=== PATIENT | male | born 1980 | race Caucasian/White ===

== ENCOUNTER 2016-11-29 06:45 | Emergency (ER) | payer BC ==
[2016-11-29 06:51] VITALS: TEMP 98.1
[2016-11-29] MEDS ORDERED: ONDANSETRON ODT 4 MG TAB PO STA (07:10)
--- NOTE | 2016-11-29 07:42 | ED ---
Nausea/Vomiting/Diarrhea HPI - General Chief complaint: Nausea/Vomiting/Diarrhea Stated complaint: anxiety,vomiting Time Seen by Provider: 11/29/16 07:08 Source: patient Mode of arrival: ambulatory Limitations: no limitations - History of Present Illness Initial comments: This patient is a 36-year-old man who presents to be evaluated for nausea, vomiting, and diarrhea that started around 4 AM today. The patient did have a number of episodes of vomiting and diarrhea as well as some diffuse abdominal cramping. The cramping was intermittent and is now resolved. The patient also has some anxiety associated with these symptoms and has had similar a couple of prior occasions. He was concerned because he felt like he going to pass out. There was no associated fever or chill, chest pain, palpitations, diaphoresis or dyspnea. No bloody emesis or diarrhea noted MD complaint: nausea, vomiting, diarrhea Onset/Timin -: hour(s) Description of Vomiting: food contents Description of Diarrhea: water Associated Abdominal Pain: Yes Location: diffuse Severity: mild Quality: cramping Consistency: now resolved Improves with: none Worsens with: none Associated Symptoms: other (Anxiety) - Related Data Home Medications Medication Instructions Recorded Confirmed rOPINIRole HCL [Requip] 0.25 mg PO HS 11/29/16 11/29/16 Previous Rx's Medication Instructions Recorded Ondansetron Odt [Zofran ODT] 4 mg PO Q8HR PRN #10 tab 11/29/16 Allergies Allergy/AdvReac Type Severity Reaction Status Date / Time No Known Allergies Allergy Verified 01/06/16 22:32 Review of Systems ROS Statement: Those systems with pertinent positive or pertinent negative responses have been documented in the HPI. ROS Other: All systems not noted in ROS Statement are negative. Constitutional: Denies: fever, chills Respiratory: Denies: cough, dyspnea Cardiovascular: Denies: chest pain, palpitations, syncope Gastrointestinal: Reports: as per HPI, abdominal pain, nausea, vomiting, diarrhea. Denies: hematemesis, melena, hematochezia Genitourinary: Denies: dysuria Musculoskeletal: Denies: back pain Neurological: Denies: headache Past Medical History Past Medical History: No Reported History History of Any Multi-Drug Resistant Organisms: None Reported Past Surgical History: No Surgical Hx Reported Past Psychological History: No Psychological Hx Reported Smoking Status: Never smoker Past Alcohol Use History: None Reported Past Drug Use History: None Reported General Exam Limitations: no limitations General appearance: alert, in no apparent distress Head exam: Present: atraumatic, normocephalic Eye exam: Present: normal appearance. Absent: scleral icterus, conjunctival injection ENT exam: Present: normal oropharynx Neck exam: Present: normal inspection Respiratory exam: Present: normal lung sounds bilaterally. Absent: respiratory distress, wheezes, rales, rhonchi, stridor Cardiovascular Exam: Present: regular rate, normal rhythm, normal heart sounds. Absent: systolic murmur, diastolic murmur, rubs, gallop GI/Abdominal exam: Present: soft, normal bowel sounds. Absent: distended, tenderness, guarding, rebound, mass, pulsatile mass, hernia Extremities exam: Present: normal inspection, normal capillary refill. Absent: pedal edema, calf tenderness Back exam: Present: normal inspection. Absent: CVA tenderness (R), CVA tenderness (L) Skin exam: Present: warm, dry, intact, normal color. Absent: rash Course Vital Signs 11/29/16 06:47 Temperature 98.1 F Pulse Rate 73 Respiratory 20 Rate Blood Pressure 105/64 O2 Sat by Pulse 99 Oximetry Disposition Clinical Impression: Gastroenteritis Disposition: HOME SELF-CARE Condition: Fair Instructions: Acute Nausea and Vomiting (ED) Prescriptions: Ondansetron Odt [Zofran ODT] 4 mg PO Q8HR PRN #10 tab PRN Reason: Nausea Referrals: Lana Qiu III, MD [Primary Care Provider] - 1-2 days
[2016-11-29] MEDS ORDERED: LORazepam 1 MG TAB PO STA (07:55)
[2016-11-29] MEDS ORDERED: SODIUM CHLORIDE 0.9% 1,000 ML IV ONE (08:43)
[2016-11-29] MEDS ORDERED: PROMETHAZINE INJ 25 MG in SODIUM CHLORIDE 0.9% 50 ML IVPB STA (08:43)
[2016-11-29 10:11] VITALS: BP 95/54; PULSE 62; RESP 18
== END 2016-11-29 10:10 | disposition home or self-care (01) ==
LOC: EC 06:45
DX: K52.9 Noninfective gastroenteritis and colitis, unspecified (principal)
CPT/HCPCS: 99283; 96374; 96361; J2550

== ENCOUNTER → 2017-01-21 | Outpatient (CLI) | payer BC ==
--- NOTE | 2017-01-21 23:14 | PN ---
DATE OF SERVICE: 01/21/2017 This patient is a 36-year-old gentleman who has been followed in the sleep center for treatment of obstructive sleep apnea-hypopnea syndrome. Patient continues to use his CPAP equipment without significant problems. No snoring with the machine. No excessive daytime sleepiness. Muddy Sleepiness Scale today is 4. Patient lost ( ) pounds since previous visit. I checked his CPAP unit; machine is working and the compliance is acceptable. MEDICATIONS: 1. Ropinirole. 2. Multivitamins. 3. Hydrocodone. PHYSICAL EXAMINATION: Patient in no distress. VITAL SIGNS: BP 116/68, HR 80, RR 16. Height 6 feet 10 inches. Weight 273. BMI 37.0. Temperature 97.5. Oxygen saturation at room air 96%. HEENT: PERRLA, EOMI. Evaluation of oropharynx showed tongue protrudes midline; low position of soft palate. NECK: Supple. No JVD. Thyroid is not palpable. LUNGS: Clear to percussion and to auscultation. Good air exchange. No wheezing or rhonchi. HEART: S1, S2 regular. No murmurs, gallops or rubs. ABDOMEN: Slightly obese. EXTREMITIES: No clubbing or cyanosis. DIRECTOR VOLUNTEER SERVICES: Awake, alert, and oriented x3. Cranial nerves 2 to 7 intact. There is no fasciculation or atrophy noted. No focal deficits observed. IMPRESSION: 1. Obstructive sleep apnea-hypopnea syndrome. Patient demonstrated good compliance with treatment, benefitting from treatment. 2. Obesity. Patient lost weight since previous visit. 3. History of some nasal problems. 4. Status post recent vasectomy. PLAN: 1. Continue treatment with CPAP every night for the whole night. 2. We will fit patient with a little bit different style of full-face mask AirFit F10, large size. Patient feels comfortable with that. 3. No driving if feeling any sleepiness. 4. Sleep hygiene with regular time in bed for at least 8 hours. Thank you very much for allowing me to participate in the management of your patient. Sincerely, Espinoza Rose MD, PhD, FAASM. Diplomat of [employer], Sleep Medicine Board by [employer], [employer]
== END | disposition home or self-care (01) ==
LOC: SLEEP 16:52
PROVIDERS: ATTEND Internal Medicine
DX: G47.33 Obstructive sleep apnea (adult) (pediatric) (principal); E66.9 Obesity, unspecified; Z68.37 Body mass index [BMI] 37.0-37.9, adult; Z98.52 Vasectomy status; Z79.899 Other long term (current) drug therapy

== ENCOUNTER 2017-12-23 12:39 | Observation (INO) | payer BC ==
[2017-12-20 14:36] VITALS: BMI 36.3
[~2017-12-23 12:39] MED LIST: DEXAMETHASONE SOD PHOSPHATE 10 MG/ML 1 ML VIAL IV ONE; FAMOTIDINE 20 MG/2 ML VIAL IV ONE; LIDOCAINE 1% 20 ML VIAL (10MG/ML) FOR IV START INTRADERMA PRN; ONDANSETRON 4 MG/2 ML VIAL IVP ONE; metroNIDAZOLE-NS PMX 500 MG in SALINE 1 100ML.BAG IVPB ONE
[2017-12-23] MEDS: OXYMETAZOLINE 0.05% NASL SPRAY 1 SPRAY BOTTLE EA NOSTRIL ONE ×5 (13:03→13:23)
[2017-12-23] MEDS: LACTATED RINGERS 1,000 ML IV SCH (13:08)
[2017-12-23] MEDS ORDERED: PROPOFOL 10 MG/ML 20 ML VIAL IV ONE (13:48)
[2017-12-23] MEDS ORDERED: fentaNYL (PF) 50 MCG/ML 2 ML AMP ONE (13:48)
[2017-12-23] MEDS ORDERED: DEXAMETHASONE SOD PHOS (MDV) 100 MG/10 ML VIAL ONE (13:48)
[2017-12-23] MEDS ORDERED: MIDAZOLAM 2 MG/2 ML VIAL ONE (13:48)
[2017-12-23] MEDS ORDERED: LIDOCAINE 1% INJ 10MG/ML (20 ML MDV) ONE (13:48)
[2017-12-23] MEDS ORDERED: SUCCINYLCHOLINE CHLORIDE VIAL 200 MG/10 ML VIAL IV ONE (13:48)
[2017-12-23] MEDS ORDERED: CIPROFLOXACIN-DEXAMETH 0.3-0.1% DROPS 7.5 ML BTL BOTH EARS ONE (13:59)
[2017-12-23] MEDS ORDERED: LIDOCAINE 1%-EPI 1:100,000 30 ML VIAL SUBMUCOSAL ONE ×2 (14:26→15:03)
[2017-12-23] MEDS ORDERED: BUPIVACAINE (PF) 0.25% 30 ML VIAL SQ ONE (14:27)
[2017-12-23] MEDS ORDERED: LACTATED RINGERS 1,000 ML IV ONE (16:01)
[2017-12-23] MEDS ORDERED: PROMETHAZINE INJ 25 MG/ML 1 ML VIAL IM PRN (16:19)
--- NOTE | 2017-12-23 16:19 | P.OP ---
Date of Procedure: 12/23/17 Preoperative Diagnosis: Chronic otitis media with effusion Eustachian tube dysfunction Deviated nasal septum to the right severe with obstruction Bilateral hypertrophy of nasal turbinates with obstruction Obstructive sleep apnea syndrome, intolerant to CPAP Chronic hypertrophic adenotonsillitis with obstruction Postoperative Diagnosis: Same Procedure(s) Performed: Bilateral direct microscopic tympanostomy and tube placement utilizing ultraseal tubes Bilateral endoscopic balloon eustachian tuboplasty Septoplasty Bilateral submucosal resection of the inferior turbinates with outfracturing compression Uvulopalatopharyngoplasty Modified Coblation adenotonsillectomy Anesthesia: GETA Surgeon: Royal Rollins Estimated Blood Loss (ml): 25 Pathology: other (Sinonasal and adenoid tonsils) Condition: stable Disposition: PACU Indications for Procedure: This is a 37-year-old white male who is had persistent problems with sleep apnea is also had her pain pressure fullness and hearing loss he has failed CPAP therapy and was found to have a bilateral middle ear effusion was not amenable to medical therapy. Eustachian tube was also blocked. Patient has sleep apnea with large tonsils and adenoids. Septum was deviated to the right severely and the inferior turbinates were large and obstructive. Since the patient failed medical therapy we decided to consider surgical option. The patient's requesting tympanostomy and tube placement and eustachian tuboplasty adenotonsillectomy uvulopalatopharyngoplasty septoplasty and turbinate surgery. All risks, benefits, and alternative therapies were discussed. Consent was obtained and all questions were answered. Operative Findings: This patient was found have a bilateral middle ear effusion. Eustachian tube orifices were plugged. Septum was severely deviated to the right with large obstructive inferior turbinates. Large tonsils and adenoids were noted. Redundant soft palate was seen. Description of Procedure: Prior to surgery, all risks, benefits, and alternative therapies were discussed again with the patient and family. Risks of bleeding, need for second tubes, perforation, early extrusion of tubes, etc. etc. were explained. All questions were answered and a consent was obtained. This patient was taken to the operative room and placed in the supine position. Mask inhalation anesthesia was performed by the department of anesthesia. The patient was monitored throughout the entire case by the department of anesthesia. Both tympanic membranes were visualized with an operating Zeiss microscope. Cerumen and epithelial debris was removed from the external auditory canals bilaterally. The tympanic membranes were visualized under an operative microscope. Tympanostomy incisions were made inferiorly. Fluid was suctioned from the middle ear space with use of a #3 and #5 Medel suction with care to avoid any trauma to the middle ear structures. Ventilation tubes were then inserted bilaterally. Excellent placement was obtained. Attention was then paid to the nose where an endoscope was inserted into the nose along with an a balloon. We identified the eustachian tube orifices which were very tight and closed bilaterally. We inserted an aclarent balloon into both eustachian tube orifices and dilated the eustachian tubes with balloon dilatation. The patient tolerated this well. Bones were removed. Attention was paid to the nose where the septum and inferior turbinates were injected with lidocaine 1% with epinephrine 1 100,000. Approximately 10 minutes were allowed wait for full vasoconstrictive effects to take place. At this time, a caudal incision was made over the caudal portion of the left septum. This was made down to the mucoperichondrium were a mucoperichondrial flap was developed to the extent of visualization on the left. A crossover incision was made with for the mucoperichondrial flap development to the extent of visualization on the contralateral side. With use of several crosshatching incisions and removal of redundant strips of septal cartilage the septum was straightened and placed back in position. The septum was perfectly straight and the incision was closed with a 4 rapid Vicryl. A quilting stitch was used to reapproximate the septal flaps. The septum was sutured fixated to the vomer area and groove. In the incision was closed with 40 rapid Vicryl. Attention was then paid to the inferior turbinates which were entered anteriorly with the use of a microdebrider utilizing a 2 mm blade. We entered the inferior turbinates and we remove bone and submucosal elements from the inferior turbinates bilaterally. After submucosal resection was performed with removal of bone and submucosal elements ; the inferior turbinates were outfractured and compressed with use of a [employer] nasal elevator. Excellent airway was obtained.. A septal splint was then placed and fixated. . Mouth was opened and tongue was depressed. The tonsils were grasped with an Allis forceps and brought medially bilaterally. A subcapsular dissection was performed utilizing an Evac-70 handpiece with an Arthrotec setting of 7. The tonsils were removed without incident bilaterally and the tonsillar fossae were inspected and bleeding was nonexistent and stopped spontaneously with Coblation. A Marcaine and lidocaine mixture was injected into the peritonsillar area for anesthesia postoperatively. After the tonsillar fossae were reinspected and no bleeding was seen attention was then paid to the nasopharynx where a red rubber catheter was placed into the nose and out the mouth and used to retract the soft palate. With use of indirect mirror examination and the Coblation hand wand, the adenoid tissue was removed in that fashion again utilizing an Evac-70 handpiece with Arthrotec setting of 7. The adenoid tissues were removed and fulgurated. The patient tolerated this procedure well. The nasopharynx shows no signs of any bleeding. The uvula was extremely long and the soft palate was redundant. We removed the anterior face of the uvula and we remove the anterior inferior margin of the mucosa the soft palate. We sutured the posterior margin of the soft palate to the anterior portion of the soft palate with care to avoid any excessive soft palate resection. We measured the soft palate to prevent any velopharyngeal insufficiency. The soft palate looked excellent and after the uvulectomy and the lateral pharyngeal mucosa was removed in the usual fashion, the incision was closed with a 4 rapid Vicryl. Excellent approximation was obtained. Patient was taken to postanesthesia recovery in excellent condition.
[2017-12-23] MEDS ORDERED: HYDROcodone/APAP 15 ML SOLUTION PO PRN (16:23)
[2017-12-23] MEDS ORDERED: LIDOCAINE VISCOUS 2% 15 ML CUP MUCOUS MEM PRN (16:24)
[2017-12-23] MEDS: fentaNYL (PF) 50 MCG/ML 2 ML AMP IV PRN ×4 (16:38→17:17)
[2017-12-23] MEDS ORDERED: LORazepam 2 MG/ML INJ IV PRN (18:20)
[2017-12-23] MEDS ORDERED: MORPHINE PCA 30 MG/30 ML SYRINGE IV PRN (18:23)
[2017-12-23] MEDS ORDERED: ONDANSETRON 4 MG/2 ML VIAL IVP PRN (18:23)
[2017-12-23] MEDS ORDERED: NALOXONE 0.4 MG/ML 1 ML VIAL IV PRN (18:23)
[2017-12-23] MEDS: DEXTROSE 5%-LACTATED RINGERS 1,000 ML IV SCH (18:36)
[2017-12-23] MEDS: methylPREDNISolone SOD SUCCI 125 MG/2 ML VIAL IV SCH (22:13)
[2017-12-24] MEDS: ceFAZolin 1,000 MG in DEXTROSE/WATER 1 50ML.BAG IVPB SCH ×3 (01:01→15:27)
[2017-12-24] MEDS: methylPREDNISolone SOD SUCCI 125 MG/2 ML VIAL IV SCH ×3 (01:02→11:37)
[2017-12-24] MEDS: LACTATED RINGERS 1,000 ML IV SCH (07:12)
[2017-12-24] MEDS: DEXTROSE 5%-LACTATED RINGERS 1,000 ML IV SCH ×2 (07:15)
[2017-12-24] MEDS ORDERED: MELOXICAM 7.5 MG TAB PO SCH (09:00)
[2017-12-24 15:24] VITALS: BP 110/64; PULSE 101; RESP 20; TEMP 98.5
--- NOTE | 2017-12-24 16:39 | P.DS ---
Providers Date of admission: 12/23/17 20:19 Expected date of discharge: 12/24/17 Attending physician: Royal Rollins Primary care physician: Lana Anton [facility] Course: This patient underwent sleep apnea surgery yesterday and has done well. His pain is reasonable I would like to go home. He's had no difficulties while he' s been here at the hospital Procedures: Sleep apnea surgery Patient Condition at Discharge: Good Plan - Discharge Summary Discharge Rx Participant: Yes New Discharge Prescriptions: New Amoxicillin 500 mg PO Q8HR #300 ml Famotidine [Pepcid] 40 mg PO BID 30 Days tab Hydrocodone/Acetaminophen [[place] 5-325] 1 - 2 each PO Q6HR PRN #50 tab PRN Reason: Pain Lidocaine Viscous [Xylocaine Viscous 2%] 5 ml PO RT-Q1H PRN #300 ml PRN Reason: Pain Meloxicam [Mobic] 15 mg PO DAILY #14 tab predniSONE 20 mg PO DIRECTED #15 tab Ofloxacin 0.3% Ophth Soln [Ocuflox Ophth Soln] 5 - 7 drops BOTH EARS BID #10 bottle No Action rOPINIRole HCL [Requip] 1 mg PO HS Fluticasone Nasal [place] [Flonase Nasal [place]] 1 spray EA NOSTRIL BID Discharge Medication List Fluticasone Nasal [place] [Flonase Nasal [place]] 1 spray EA NOSTRIL BID 12/20/17 [ History] rOPINIRole HCL [Requip] 1 mg PO HS 12/20/17 [History] Amoxicillin 500 mg PO Q8HR #300 ml 12/23/17 [Rx] Famotidine [Pepcid] 40 mg PO BID 30 Days tab 12/23/17 [Rx] Hydrocodone/Acetaminophen [[place] 5-325] 1 - 2 each PO Q6HR PRN #50 tab 12/23/17 [Rx] Lidocaine Viscous [Xylocaine Viscous 2%] 5 ml PO RT-Q1H PRN #300 ml 12/23/17 [Rx ] Meloxicam [Mobic] 15 mg PO DAILY #14 tab 12/23/17 [Rx] Ofloxacin 0.3% Ophth Soln [Ocuflox Ophth Soln] 5 - 7 drops BOTH EARS BID #10 bottle 12/23/17 [Rx] predniSONE 20 mg PO DIRECTED #15 tab 12/23/17 [Rx] Follow up Appointment(s)/Referral(s): Royal Rollins DO [Doctor of Osteopathic Medicine] - 1 Week Patient Instructions/Handouts: *[facility] - ([facility]) Bilateral Tympanostomy & Tube Placement, *[facility] - ([facility]) Uvulopalatopharyngoplasty Post-Op Instructions Activity/Diet/Wound Care/Special Instructions: Rest with head elevated, no heavy lifting or bending, utilize drops in the ears for 3-5 days, call if any problems at cell phone at [phone], rest in a lazy boy type chair and sleep upright for the next 1 week. Gargled with ice water for pain control. Cold slushy's help. No crunchy foods for 3 weeks. Discharge Disposition: HOME SELF-CARE
== END 2017-12-24 18:00 | disposition home or self-care (01) ==
LOC: OR 12:39 → 3SUR 15:52 → OR 20:19 → 3SUR 20:19
PROVIDERS: ADMIT Otolaryngology; ATTEND Otolaryngology
DX: H65.493 Other chronic nonsuppurative otitis media, bilateral (principal); H69.83 Other specified disorders of Eustachian tube, bilateral; J34.2 Deviated nasal septum; J34.3 Hypertrophy of nasal turbinates; G47.33 Obstructive sleep apnea (adult) (pediatric); J35.03 Chronic tonsillitis and adenoiditis; J35.01 Chronic tonsillitis; Z79.899 Other long term (current) drug therapy; Z79.51 Long term (current) use of inhaled steroids; E66.9 Obesity, unspecified; J30.2 Other seasonal allergic rhinitis; Z87.891 Personal history of nicotine dependence; H90.2 Conductive hearing loss, unspecified; K13.79 Other lesions of oral mucosa; Z68.36 Body mass index [BMI] 36.0-36.9, adult
CPT/HCPCS: 69436; 69990; 69949; 30520; 30140; 42145; 42821; 94760; 94762; 88304; 88300; 88302; G0378 ×2; J2250; J0330; J1100 ×2; J2550; J2930 ×2; J0690 ×2; J2405; J2001; J3010; J2704; J2270

== ENCOUNTER → 2018-01-17 | Outpatient (CLI) | payer BC ==
[2018-01-18 14:14] LABS: Avocado Class CLASS 0; Banana IgE Class CLASS 0; Cow's Milk IgE Class CLASS 0; Egg White IgE <0.35 kU/L (<0.35); Hazelnut IgE <0.35 kU/L (<0.35); Hazelnut IgE Class CLASS 0; Kiwi IgE <0.35 kU/L (<0.35); Peanut IgE <0.35 kU/L (<0.35); Potato IgE <0.35 kU/L (<0.35); Potato IgE Class CLASS 0; Soybean IgE <0.35 kU/L (<0.35)
== END | disposition home or self-care (01) ==
LOC: LABWHC1 15:45
PROVIDERS: ATTEND Otolaryngology
DX: J30.89 Other allergic rhinitis (principal)
CPT/HCPCS: 36415; 86001; 86003

== ENCOUNTER 2018-09-22 20:20 | Emergency (ER) | payer BC ==
[2018-09-22 20:25] VITALS: TEMP 97.4
[2018-09-22] MEDS ORDERED: ASPIRIN 81 MG PO STA (20:46)
[2018-09-22] MEDS ORDERED: SODIUM CHLORIDE 0.9% 1,000 ML IV STA ×2 (20:46)
--- NOTE | 2018-09-22 20:49 | ED ---
Chest Pain HPI - General Source: patient, RN notes reviewed, old records reviewed Mode of arrival: ambulatory Limitations: no limitations <Laura Ernst - Last Filed: 09/23/18 00:03> <Jena Salazar - Last Filed: 09/28/18 03:37> - General Chief Complaint: Chest Pain Stated Complaint: Chest pain Time Seen by Provider: 09/22/18 20:35 - History of Present Illness Initial Comments: Patient is a pleasant 38-year-old male, who presents emergency Department stay with chief complaint of sharp stabbing chest pain. Patient reports that the symptoms are approximate 45 minutes ago. Patient states that he has a family history of Dstos-Micsjvdbp-Caxah syndrome. He is concerned there may be causing this pain at this time. Patient states that he at this time is having an occasional pain with that his right shoulder. He was slightly nauseated at that time and occurred. He reports that at this time is chest pain is a 1 out of 10 in her shoulder pain is a 2 out of 10. Patient states that he has had no fevers or chills. He denies associated shortness of breath. (Laura Ernst) - Related Data Home Medications Medication Instructions Recorded Confirmed Fluticasone Nasal [place] [Flonase 1 spray EA NOSTRIL BID PRN 12/20/17 09/22/18 Nasal [place]] Multivitamins, Thera [Multivitamin 1 tab PO DAILY 09/22/18 09/22/18 (formulary)] Previous Rx's Medication Instructions Recorded Omeprazole 40 mg PO DAILY #20 capsule. 09/23/18 Allergies Allergy/AdvReac Type Severity Reaction Status Date / Time No Known Allergies Allergy Verified 09/22/18 20:53 Review of Systems ROS Other: All systems not noted in ROS Statement are negative. <Laura Ernst - Last Filed: 09/23/18 00:03> ROS Other: All systems not noted in ROS Statement are negative. <Jena Salazar - Last Filed: 09/28/18 03:37> ROS Statement: Those systems with pertinent positive or pertinent negative responses have been documented in the HPI. EKG Findings - EKG Comments: EKG Findings:: EKG shows sinus rhythm normal EKG noted. Ventricular rate of 83 bpm. W[place] interval is 164 ms. QRS ration is 88 ms. QT QTc is 380/446 ms. No evidence of ST elevation or T-wave inversion. <Laura Ersnt - Last Filed: 09/23/18 00:03> Past Medical History Past Medical History: Sleep Apnea/CPAP/BIPAP Additional Past Medical History / Comment(s): Use of CPAP. History of Any Multi-Drug Resistant Organisms: None Reported Past Surgical History: Adenoidectomy, Tonsillectomy Additional Past Surgical History / Comment(s): Tongue tie clipped, wisdom teeth extracted. UP3 sinus surgery Past Anesthesia/Blood Transfusion Reactions: No Reported Reaction Past Psychological History: Anxiety Smoking Status: Former smoker Past Alcohol Use History: Rare Past Drug Use History: None Reported - Past Family History Mother Family Medical History: No Reported History <Laura Ernst - Last Filed: 09/23/18 00:03> General Exam Limitations: no limitations <Laura Ernst - Last Filed: 09/23/18 00:03> Course <Laura Ernst - Last Filed: 09/23/18 00:03> <Jena Salazar - Last Filed: 09/28/18 03:37> Vital Signs 09/22/18 09/22/18 09/22/18 20:20 20:50 21:30 Temperature 97.4 F L Pulse Rate 90 82 Pulse Rate [ 82 Business Continuity Strategy Director ] Respiratory 18 18 Rate Blood Pressure 123/85 122/80 O2 Sat by Pulse 98 99 Oximetry 09/22/18 09/22/18 22:04 23:29 Temperature Pulse Rate 78 71 Pulse Rate [ Business Continuity Strategy Director ] Respiratory 17 18 Rate Blood Pressure 113/73 112/75 O2 Sat by Pulse 95 96 Oximetry - Reevaluation(s) Reevaluation #1: 09/23/18 00:03 Patient is reevaluated. He reports after the GI cocktail he had one hour where he is pain-free. Patient states that after that seemed to wear off he's been having occasional pains. He states is only 1 out of 10. I discussed with him of the repeat troponin is negative. Patient is pleasant results. (Laura Ernst) Chest Pain MDM <Laura Ernst - Last Filed: 09/23/18 00:03> <Jena Salazar - Last Filed: 09/28/18 03:37> - MDM 38-year-old male presents returns today with onset of left-sided sharp chest pain that periodic in nature. Patient EKG and lab work was reviewed and unremarkable. He is a nonsmoker. Family history of heart disease, he is not diabetic and vital signs stable. Not hypertensive. Patient's chest x-ray was reviewed and negative for any acute process. Patient was given a GI cocktail and did have some relief for the symptoms. He states that seemed to wear off at some point reoccurred. I do believe patient's symptoms are more related to GERD. Liver enzymes are normal. Patient has been advised to have close follow- up with primary care physician. We'll treat the Patient for gastritis and acid reflux at this time. I discussed the Patient has any further episodes of pain he can return to the emergency department. At this time will discharge Patient with Pepcid. (Laura Ernst) I was available for consultation in the emergency department. The history and physical exam were done by the midlevel provider. I was consulted for this patient's care. I reviewed the case with the midlevel provider and based on their presentation of the patient, I agree with the assessment, medical decision making and plan of care as documented. (Jena Salazar) Disposition Is patient prescribed a controlled substance at d/c from ED?: No Time of Disposition: 00:05 <Laura Ernst - Last Filed: 09/23/18 00:03> <Jena Salazar - Last Filed: 09/28/18 03:37> Clinical Impression: Atypical chest pain, GERD (gastroesophageal reflux disease) Disposition: HOME SELF-CARE Condition: Good Instructions: Chest Pain (ED), Diet for Stomach Ulcers and Gastritis (ED) Additional Instructions: Patient is a Motrin Tylenol for pain. Follow-up with your primary care physician. There is any further symptoms or rate concerns please return for reevaluation. Patient should use omeprazole as perscribed. Prescriptions: Omeprazole 40 mg PO DAILY #20 capsule.dr Referrals: Lana Qiu III, MD [Primary Care Provider] - 1-2 days
[2018-09-22 21:03] LABS: Basophils # (A) 0.1 k/uL (0-0.2); Basophils % (A) 1 %; Eosinophils # (A) 0.5 k/uL (0-0.7); Eosinophils % (A) 3 %; HCT 46.4 % (39.0-53.0); HGB 15.6 gm/dL (13.0-17.5); Lymphocytes # (A) 4.2 k/uL (1.0-4.8); Lymphocytes % (A) 28 %; MCH 29.7 pg (25.0-35.0); MCHC 33.5 g/dL (31.0-37.0); MCV 88.6 fL (80.0-100.0); Mean Platelet Volume 7.9; Monocytes # (A) 1.1 k/uL (0-1.0); Monocytes % (A) 7 %; Neutrophils # (A) 8.8 k/uL (1.3-7.7); Neutrophils % (A) 59 %; Platelet Count 199 k/uL (150-450); RBC 5.24 m/uL (4.30-5.90); RDW 12.5 % (11.5-15.5)
[2018-09-22 21:12] LABS: ALT 41 U/L (21-72); AST 34 U/L (17-59); Albumin 4.3 g/dL (3.5-5.0); Alkaline Phosphatase 82 U/L (38-126); Amylase 55 U/L (30-110); Anion Gap 10 mmol/L; Blood Urea Nitrogen 14 mg/dL (9-20); Calcium 9.3 mg/dL (8.4-10.2); Carbon Dioxide 27 mmol/L (22-30); Chloride 104 mmol/L (98-107); Glucose 85 mg/dL (74-99); Lipase 87 U/L (23-300); Magnesium 1.9 mg/dL (1.6-2.3); Potassium 4.1 mmol/L (3.5-5.1); Sodium 141 mmol/L (137-145); Total Bilirubin 0.5 mg/dL (0.2-1.3); Total Protein 7.5 g/dL (6.3-8.2)
[2018-09-22 21:14] LABS: INR 0.9 (<1.2); Partial Thromboplastin Time 29.3 sec (22.0-30.0)
[2018-09-22 21:17] LABS: Creatine Kinase 189 U/L (55-170)
--- NOTE | 2018-09-22 21:22 | XR ---
EXAMINATION TYPE: XR chest 2V DATE OF EXAM: 09/22/2018 COMPARISON: NONE HISTORY: Chest pain TECHNIQUE: Frontal and lateral views of the chest are obtained. FINDINGS: Heart and mediastinum are normal. Lungs are clear. Diaphragm is normal. There are chest le ads. Bony thorax is intact. IMPRESSION: Normal chest
[2018-09-22 21:29] LABS: Creatine Kinase MB 1.8 ng/mL (0.0-2.4); Troponin I <0.012 ng/mL (0.000-0.034)
[2018-09-22] MEDS ORDERED: MAG HYDROX/AL HYDROX/SIMETH 30 ML, HYOSCYAMINE ELIXIR 10 ML, CIMETIDINE HCL 300 MG, LID... PO STA ×4 (21:55)
[2018-09-22] MEDS ORDERED: KETOROLAC 30 MG/ML 1 ML VIAL IVP STA (21:55)
[2018-09-22 23:31] VITALS: BP 112/75; PULSE 71; RESP 18
== END 2018-09-23 00:15 | disposition home or self-care (01) ==
LOC: EC 20:20
DX: K21.9 Gastro-esophageal reflux disease without esophagitis (principal); R07.89 Other chest pain; G47.30 Sleep apnea, unspecified; Z99.89 Dependence on other enabling machines and devices; Z87.891 Personal history of nicotine dependence; Z82.49 Family history of ischemic heart disease and other diseases of the circulatory system
CPT/HCPCS: 36415; 93005; 83880; 80053; 82150; 82550; 82553; 83690; 83735; 84484; 85025; 85610; 85730; 71046; 99285; 96374; 96361 ×3; J1885

== ENCOUNTER → 2018-10-24 | Outpatient (CLI) | payer BC ==
--- NOTE | 2018-10-24 14:49 | US ---
EXAMINATION TYPE: US abdomen complete DATE OF EXAM: 10/24/2018 COMPARISON: None CLINICAL HISTORY: 38-year-old male R10.13 Epigastric pain. Intermittent chest and abdomen pain TECHNIQUE: Multiple sonographic images of the abdomen are obtained. FINDINGS: EXAM MEASUREMENTS: Liver Length: 16.8 cm Gallbladder Wall: 0.2 cm CBD: 0.4 cm Spleen: 13.0 cm Right Kidney: 10.2 x 5.4 x 5.2 cm Left Kidney: 11.2 x 5.5 x 6.0 cm Nuclear Weapons Specialist notes:Difficult and limited study due to patient body habitus Pancreas: Suboptimal visualization secondary to shadowing from bowel gas. Liver: Echogenic and attenuating, limited as the liver was scanned intercostally, limited by rib sha dowing . Gallbladder: echoes seen within dependent portion of gallbladder, possible sludge. No abnormal diste ntion or shadowing calculi. No wall thickening or pericholecystic fluid. Evidence for sonographic Bales's sign: no CBD: visualized portions wnl, limited by overlying bowel gas Spleen: Borderline size measuring at 13.0cm Right Kidney: wnl Left Kidney: wnl Upper IVC: wnl Abd Aorta: visualized portions wnl, limited by overlying midline bowel gas IMPRESSION: 1. Exam limitations due to bowel gas shadowing and body habitus. 2. Gallbladder sludge without evidence for acute cholecystitis. 3. Suspect some degree of underlying fatty infiltration of the liver.
== END | disposition home or self-care (01) ==
LOC: RADUSWWP 08:57
PROVIDERS: ATTEND Family Medicine
DX: K82.8 Other specified diseases of gallbladder (principal)
CPT/HCPCS: 76700

== ENCOUNTER → 2020-04-10 | Outpatient (CLI) | payer BC | END | disposition home or self-care (01) | LOC: LABWHC1 09:20 | DX: Z11.59 Encounter for screening for other viral diseases (principal) | CPT/HCPCS: U0003; C9803 ==

== ENCOUNTER → 2020-12-25 | Outpatient (CLI) | payer BC | END | disposition home or self-care (01) | LOC: LABWHC1 16:04 | DX: U07.1 COVID-19 (principal) | CPT/HCPCS: U0003; C9803 ==

== ENCOUNTER 2021-09-13 12:47 | Emergency (ER) | payer BC ==
[2021-09-13] MEDS ORDERED: SODIUM CHLORIDE 0.9% 1,000 ML IV STA (13:40)
[2021-09-13] MEDS ORDERED: ONDANSETRON 4 MG/2 ML VIAL IVP STA (13:40)
[2021-09-13] MEDS ORDERED: HYDROmorphone 0.5 MG/0.5 ML SYRINGE IVP STA (13:40)
--- NOTE | 2021-09-13 13:52 | ED ---
General Adult HPI - General Source: patient, family, RN notes reviewed Mode of arrival: ambulatory Limitations: no limitations <Juni Wagoner P - Last Filed: 09/13/21 17:04> <Jena Salazar P - Last Filed: 09/13/21 18:35> - General Chief complaint: Abdominal Pain Stated complaint: rt sided abd pain Time Seen by Provider: 09/13/21 13:11 - History of Present Illness Initial comments: 41-year-old male presents to the emergency room for a chief complaint of abdominal pain. Patient has right upper quadrant abdominal pain radiating to his right back. Patient states this started about 2 hours prior to arrival. Denies nausea vomiting. Patient states he can't seem to get comfortable. Denies any fevers. States he did eat waffles and sausage about an hour prior to arrival.Patient has no other complaints at this time including shortness of breath, chest pain, nausea or vomiting, headache, or visual changes. (Juni Wagoner) - Related Data Home Medications Medication Instructions Recorded Confirmed Fluticasone Nasal [place] [Flonase 1 spray EA NOSTRIL BID PRN 12/20/17 09/22/18 Nasal [place]] Multivitamins, Thera [Multivitamin 1 tab PO DAILY 09/22/18 09/22/18 (formulary)] Previous Rx's Medication Instructions Recorded Omeprazole 40 mg PO DAILY #20 capsule. 09/23/18 Allergies Allergy/AdvReac Type Severity Reaction Status Date / Time No Known Allergies Allergy Verified 09/13/21 13:04 Review of Systems ROS Other: All systems not noted in ROS Statement are negative. <Jnui Wagoner P - Last Filed: 09/13/21 17:04> ROS Other: All systems not noted in ROS Statement are negative. <Jena Salazar P - Last Filed: 09/13/21 18:35> ROS Statement: Those systems with pertinent positive or pertinent negative responses have been documented in the HPI. Past Medical History Past Medical History: Sleep Apnea/CPAP/BIPAP Additional Past Medical History / Comment(s): Use of CPAP. History of Any Multi-Drug Resistant Organisms: None Reported Past Surgical History: Adenoidectomy, Tonsillectomy Additional Past Surgical History / Comment(s): Tongue tie clipped, wisdom teeth extracted. UP3 sinus surgery Past Anesthesia/Blood Transfusion Reactions: No Reported Reaction Past Psychological History: Anxiety Smoking Status: Never smoker Past Alcohol Use History: Rare Past Drug Use History: None Reported - Past Family History Mother Family Medical History: No Reported History <Juni Wagoner P - Last Filed: 09/13/21 17:04> General Exam Limitations: no limitations General appearance: alert, in no apparent distress Head exam: Present: atraumatic Eye exam: Present: normal appearance, PERRL, EOMI. Absent: scleral icterus, conjunctival injection ENT exam: Present: normal exam, mucous membranes moist Neck exam: Present: normal inspection, full ROM. Absent: tenderness Respiratory exam: Present: normal lung sounds bilaterally. Absent: respiratory distress, wheezes Cardiovascular Exam: Present: regular rate, normal rhythm, normal heart sounds GI/Abdominal exam: Present: soft, tenderness (mild right upper quadrant tenderness without guarding), normal bowel sounds. Absent: distended, guarding Back exam: Absent: CVA tenderness (R), CVA tenderness (L) <Juni Wagoner P - Last Filed: 09/13/21 17:04> Course Vital Signs 09/13/21 09/13/21 13:01 17:08 Temperature 98.1 F Pulse Rate 79 65 Respiratory 18 20 Rate Blood Pressure 148/82 114/75 O2 Sat by Pulse 100 98 Oximetry Medical Decision Making - Lab Data Result diagrams: 09/13/21 14:35 09/13/21 14:35 <Juni Wagoner P - Last Filed: 09/13/21 17:04> - Lab Data Result diagrams: 09/13/21 14:35 09/13/21 14:35 <Jena Salazar P - Last Filed: 09/13/21 18:35> - Medical Decision Making Vitals are stable. CBC does show some mild leukocytosis. CMP is unremarkable. Urinalysis did show moderate blood with [address] abd and pelvis was obtained which did not show any evidence of kidney stone or other acute process. Patient reevaluated and continues to have pain. He does not want any additional narcotic pain medication although the Dilaudid did help. We will give him Toradol and obtain an ultrasound of his gallbladder. Care signed out to Dr. Salazar pending gallbladder ultrasound. (Juni Wagoner - Lab Data Lab Results 09/13/21 09/13/21 09/13/21 Range/Units 14:35 14:35 14:35 WBC 12.6 H (3.8-10.6) k/uL RBC 5.09 (4.30-5.90) m/uL Hgb 16.0 (13.0-17.5) gm/dL Hct 46.7 (39.0-53.0) % MCV 91.7 (80.0-100.0) fL MCH 31.5 (25.0-35.0) pg MCHC 34.3 (31.0-37.0) g/dL RDW 13.0 (11.5-15.5) % Plt Count 205 (150-450) k/uL MPV 9.2 Neutrophils % 73 % Lymphocytes % 17 % Monocytes % 5 % Eosinophils % 2 % Basophils % 1 % Neutrophils # 9.2 H (1.3-7.7) k/uL Lymphocytes # 2.2 (1.0-4.8) k/uL Monocytes # 0.7 (0-1.0) k/uL Eosinophils # 0.2 (0-0.7) k/uL Basophils # 0.1 (0-0.2) k/uL Sodium 140 (137-145) mmol/L Potassium 4.3 (3.5-5.1) mmol/L Chloride 102 (98-107) mmol/L Carbon Dioxide 27 (22-30) mmol/L Anion Gap 11 mmol/L BUN 18 (9-20) mg/dL Creatinine 0.88 (0.66-1.25) mg/dL Est GFR (CKD-EPI)AfAm >90 (>60 ml/min/1.73 sqM) Est GFR (CKD-EPI)NonAf >90 (>60 ml/min/1.73 sqM) Glucose 86 (74-99) mg/dL Calcium 9.7 (8.4-10.2) mg/dL Total Bilirubin 0.5 (0.2-1.3) mg/dL AST 27 (17-59) U/L ALT 21 (4-49) U/L Alkaline Phosphatase 91 (38-126) U/L Total Protein 7.6 (6.3-8.2) g/dL Albumin 4.5 (3.5-5.0) g/dL Amylase 63 (30-110) U/L Lipase 84 (23-300) U/L Urine Color Yellow Urine Appearance Clear (Clear) Urine pH 5.5 (5.0-8.0) Ur Specific [place] 1.024 (1.001-1.035) Urine Protein Negative (Negative) Urine Glucose (UA) Negative (Negative) Urine Ketones Negative (Negative) Urine Blood Moderate H (Negative) Urine Nitrite Negative (Negative) Urine Bilirubin Negative (Negative) Urine Urobilinogen <2.0 (<2.0) mg/dL Ur Leukocyte Esterase Negative (Negative) Urine RBC 5 (0-5) /hpf Urine WBC <1 (0-5) /hpf Urine Mucus Rare H (None) /hpf Disposition Is patient prescribed a controlled substance at d/c from ED?: No Time of Disposition: 17:05 <Juni Wagoner P - Last Filed: 09/13/21 17:04> Is patient prescribed a controlled substance at d/c from ED?: No <Jena Salazar P - Last Filed: 09/13/21 18:35> Clinical Impression: Abdominal pain Disposition: HOME SELF-CARE Condition: Good Instructions (If sedation given, give patient instructions): Abdominal Pain (ED) Additional Instructions: Please follow up with your doctor in 1-2 days. Return to the ER for any worsening symptoms. Referrals: Lana Qiu III, MD [Primary Care Provider] - 1-2 days Jacob Beck MD [Medical Doctor] - 1-2 days
[2021-09-13 14:51] LABS: Basophils # (A) 0.1 k/uL (0-0.2); Basophils % (A) 1 %; Eosinophils # (A) 0.2 k/uL (0-0.7); Eosinophils % (A) 2 %; HCT 46.7 % (39.0-53.0); Lymphocytes # (A) 2.2 k/uL (1.0-4.8); Lymphocytes % (A) 17 %; MCH 31.5 pg (25.0-35.0); MCHC 34.3 g/dL (31.0-37.0); MCV 91.7 fL (80.0-100.0); Mean Platelet Volume 9.2; Monocytes # (A) 0.7 k/uL (0-1.0); Monocytes % (A) 5 %; Neutrophils # (A) 9.2 k/uL (1.3-7.7); Neutrophils % (A) 73 %; Platelet Count 205 k/uL (150-450); RBC 5.09 m/uL (4.30-5.90); WBC 12.6 k/uL (3.8-10.6)
[2021-09-13 15:09] LABS: ALT 21 U/L (4-49); AST 27 U/L (17-59); African American GFR (CKD) >90 (>60 ml/min/1.73 sqM); Albumin 4.5 g/dL (3.5-5.0); Alkaline Phosphatase 91 U/L (38-126); Amylase 63 U/L (30-110); Anion Gap 11 mmol/L; Blood Urea Nitrogen 18 mg/dL (9-20); Calcium 9.7 mg/dL (8.4-10.2); Carbon Dioxide 27 mmol/L (22-30); Chloride 102 mmol/L (98-107); Glucose 86 mg/dL (74-99); Lipase 84 U/L (23-300); Non-African American GFR(CKD) >90 (>60 ml/min/1.73 sqM); Potassium 4.3 mmol/L (3.5-5.1); Sodium 140 mmol/L (137-145); Total Bilirubin 0.5 mg/dL (0.2-1.3); Total Protein 7.6 g/dL (6.3-8.2)
[2021-09-13 15:38] LABS: Appearance,Urine Clear (Clear); Bilirubin,Urine Negative (Negative); Blood,Urine Moderate (Negative); Color,Urine Yellow; Glucose,Urine (UA) Negative (Negative); Ketones,Urine Negative (Negative); Leukocyte Esterase,Urine Negative (Negative); Mucus,Urine Rare /hpf; Nitrite,Urine Negative (Negative); PH, Urine 5.5 (5.0-8.0); Protein,Urine Negative (Negative); RBC,Urine 5 /hpf (0-5); Specific Gravity,Urine 1.024 (1.001-1.035); Urobilinogen,Urine <2.0 mg/dL (<2.0); WBC,Urine <1 /hpf (0-5)
--- NOTE | 2021-09-13 16:46 | CT ---
EXAMINATION TYPE: CT abdomen pelvis w con DATE OF EXAM: 09/13/2021 COMPARISON: 01/06/2016 HISTORY: right flank pain CT DLP: 2088 mGycm Automated exposure control for dose reduction was used. CONTRAST: Performed with IV Contrast, patient injected with 100 mL of Isovue 300. Images obtained from the diaphragm to the floor the pelvis with IV contrast. Lung bases are clear. There is no pleural effusion. Heart size is normal. There is no pericardial eff usion. Liver spleen stomach pancreas appear intact. The bile ducts are nondilated. Gallbladder appears lisbeth l. There is 1 cm cyst in the left lobe of the liver. There is no adrenal mass. Kidneys show satisfactory contrast opacification. There is no hydronephrosis. Ureters are not dilated. Delayed images show nor mal renal excretion. There is no retroperitoneal adenopathy. There is posterior appendix which appear s normal. Bladder distends smoothly. There is no inguinal hernia. There is no free fluid in the pelvi s. There is no mesenteric edema. There is no ascites or free air. There is no bowel obstruction. The lumbar vertebra have normal alignment. Posterior elements are intact. There is no compression fra cture. Bony pelvis is intact. The hip joints are intact. IMPRESSION: Negative CT scan abdomen and pelvis. No evidence of renal stone or obstruction. Normal appendix.
[2021-09-13] MEDS ORDERED: KETOROLAC 30 MG/ML 1 ML VIAL IVP STA (16:52)
[2021-09-13 17:10] VITALS: RESP 20
--- NOTE | 2021-09-13 18:21 | US ---
EXAMINATION TYPE: US gallbladder DATE OF EXAM: 09/13/2021 COMPARISON: CT 2020, US 2018 CLINICAL HISTORY: RUQ pain. EXAM MEASUREMENTS: Liver Length: 17.3 cm Gallbladder Wall: 0.2 cm CBD: 0.4 cm Right Kidney: 11.1 x 5.2 x 5.0 cm Difficult and limited study due to patient body habitus Pancreas: obscured by overlying midline bowel gas Liver: measures in upper limits of normal, limited visualization, scanned intercostally Gallbladder: wnl Evidence for sonographic Bales's sign: no CBD: wnl Right Kidney: 0.5cm hyperechoic focus medial mid pole IMPRESSION: No gallstones or dilated ducts. No focal liver defect.
[2021-09-13] MEDS ORDERED: ACET/COD 300 MG/30 MG STARTER PACK 6 TAB BTL PO STA (18:35)
[2021-09-13 18:57] VITALS: BP 118/71; PULSE 83; TEMP 98
== END 2021-09-13 18:57 | disposition home or self-care (01) ==
LOC: EC 12:47
DX: R10.11 Right upper quadrant pain (principal); F41.9 Anxiety disorder, unspecified; Z72.89 Other problems related to lifestyle
CPT/HCPCS: 36415; 80053; 82150; 83690; 85025; 81001; 76705; 74177; 99284; 96374; 96375 ×2; 96361 ×4; J2405; J1885; J1170; Q9967